=== PATIENT | male | born 1935 | race Two or more races ===

== ENCOUNTER 2018-09-06 08:23 | Outpatient (CLI) | payer OTHER ==
[~2018-09-06 08:23] MED LIST: DICLOFENAC SODI50 MG PO; MEDROLPACK PO; ORPH100T PO
== END 2018-09-06 08:25 | disposition home or self-care (01) ==
LOC: SONOGRAMA 08:23 → MAMO-SONO 09:15
DX: N40.0 Benign prostatic hyperplasia without lower urinary tract symptoms (principal); I86.1 Scrotal varices

== ENCOUNTER 2018-09-26 09:55 | Outpatient (CLI) | payer OTHER | END 2018-09-26 10:09 | disposition home or self-care (01) | LOC: NUCLEAR 09:55 | DX: M79.604 Pain in right leg (principal); I87.2 Venous insufficiency (chronic) (peripheral); I73.9 Peripheral vascular disease, unspecified ==

== ENCOUNTER 2018-09-28 09:28 | Outpatient (CLI) | payer OTHER | END 2018-09-28 09:36 | disposition home or self-care (01) | LOC: NUCLEAR 09:28 | DX: I87.2 Venous insufficiency (chronic) (peripheral) (principal) ==

== ENCOUNTER 2018-11-16 07:57 | Outpatient (CLI) | payer OTHER | END 2018-11-16 07:59 | disposition home or self-care (01) | LOC: NUCLEAR 07:57 | DX: I87.2 Venous insufficiency (chronic) (peripheral) (principal) ==

== ENCOUNTER 2019-01-23 07:36 | Outpatient (CLI) | payer OTHER | END 2019-01-23 07:41 | disposition home or self-care (01) | LOC: TOM 07:36 | DX: R10.84 Generalized abdominal pain (principal) ==

== ENCOUNTER 2020-10-28 07:10 | Outpatient (CLI) | payer OTHER | END 2020-10-28 07:17 | disposition home or self-care (01) | LOC: SONOGRAMA 07:10 → MAMO-SONO 07:15 → SONOGRAMA 07:17 | PROVIDERS: ATTEND Urology | DX: N20.0 Calculus of kidney (principal); R10.2 Pelvic and perineal pain; I86.1 Scrotal varices; N43.2 Other hydrocele ==

== ENCOUNTER 2021-01-25 07:48 | Emergency (ER) | payer OTHER ==
[~2021-01-25] VITALS: Ht 177.8 cm; Wt 78.5 kg
[2021-01-25] MEDS ORDERED: ZESTRIL10 M1 PO (08:02)
[2021-01-25] MEDS ORDERED: METFORMIN HCL500 MG (08:02)
[2021-01-25] MEDS ORDERED: AMOX-CLAV 875-1 EACH PO (09:45)
== END 2021-01-25 10:22 | disposition home or self-care (01) ==
LOC: ER 07:48
DX: S61.421A Laceration with foreign body of right hand, initial encounter (principal); W54.0XXA Bitten by dog, initial encounter; Y93.89 Activity, other specified; Y92.89 Other specified places as the place of occurrence of the external cause; Y99.8 Other external cause status

== ENCOUNTER 2022-11-07 07:52 | Emergency (ER) | payer OTHER ==
[~2022-11-07] VITALS: Ht 180.3 cm; Wt 79.4 kg
[~2022-11-07 07:52] MED LIST changes: +AMOX-CLAV 875-1 EACH PO; +METFORMIN HCL500 MG; +ZESTRIL10 M1 PO
[2022-11-07] MEDS ORDERED: ROSUVASTATIN CA10 MG PO (08:26)
== END 2022-11-07 14:44 | disposition home or self-care (01) ==
LOC: ER 07:52
DX: I82.4Z1 Acute embolism and thrombosis of unspecified deep veins of right distal lower extremity (principal); E11.9 Type 2 diabetes mellitus without complications; Z79.84 Long term (current) use of oral hypoglycemic drugs

== ENCOUNTER 2023-01-28 08:52 | Emergency (ER) | payer OTHER ==
[~2023-01-28] VITALS: Ht 180.3 cm; Wt 79.4 kg
[~2023-01-28 08:52] MED LIST changes: +ROSUVASTATIN CA10 MG PO
== END 2023-01-28 09:43 | disposition home or self-care (01) ==
LOC: ER 08:52
DX: M25.552 Pain in left hip (principal); M25.551 Pain in right hip
CPT/HCPCS: 96372; 99284; J1885

== ENCOUNTER 2023-01-31 10:35 | Outpatient (CLI) | payer OTHER | END 2023-01-31 10:40 | disposition home or self-care (01) | LOC: RAD 10:35 | PROVIDERS: ATTEND General Practice | DX: M25.552 Pain in left hip (principal) ==

== ENCOUNTER 2024-05-24 07:55 | Outpatient (CLI) | payer OTHER | END 2024-05-24 07:57 | disposition home or self-care (01) | LOC: RAD 07:55 | PROVIDERS: ATTEND Internal Medicine Hematology & Oncology | DX: I82.401 Acute embolism and thrombosis of unspecified deep veins of right lower extremity (principal) ==

== ENCOUNTER 2024-06-19 07:34 | Outpatient (CLI) | payer OTHER | END 2024-06-19 07:38 | disposition home or self-care (01) | LOC: SONOGRAMA 07:34 | PROVIDERS: ATTEND Internal Medicine Hematology & Oncology | DX: I82.401 Acute embolism and thrombosis of unspecified deep veins of right lower extremity (principal) ==